=== PATIENT | female | born 2000 | race African-American/Black ===

== ENCOUNTER 2024-08-30 15:45 | Emergency (ER) | payer MEDICAID, SELFPAY ==
--- OUTSIDE RECORDS SUMMARY | 2024-08-30 15:47 | XMS_ITS | Clinical Summary ---
Author Organization [facility] Address [address] [place] [address] Care Team Providers Care Pv Installer Tech Name Role Phone Unknown, Notinfile Primary Care Provider Unavail able Saeid Fox MD Unavailable [phone] Allergies No known active allergies Medications levonorgestrel (MIRENA) IUD Mirena 20 mcg/24 hr (5 years) intrauterine device Take 1 device as needed by intrauterine route as directed. Active albuterol HFA (PROVENTIL HFA,VENTOLIN HFA,PROAIR HFA) 90 mcg/actuation inhalerIndicati ons:Asthma Inhale 2 puffs every 4 (four) hours as needed for wheezing 1 each 3 Active ibuprofen (ADVIL,MOTRIN) 600 mg tablet Take 1 tablet (600 mg total) by mouth every 6 (six) hours as needed for pain (pain) 12 tablet 4 Active Active Problems Problem Noted Date Diagnosed Date Retained intrauterine contraceptive device (IUD) 08/02/2023 Exudative pharyngitis 06/15/2021 Tonsillitis 06/15/2021 Immunizations Immunization Administration Dates Next Due Pfizer SARS-CoV-2 Monovalent Vaccination (12+ Yrs) PURPLE 04/19/2021 Medical History Medical History Date Comments Asthma Family History Medical History Relation Name Comments Diabetes Maternal Grandfather Ovarian cysts Other Relation Name Status Comments Maternal Grandfather Other Social History Tobacco Use Types Packs/Day Years Used Date Smoking Tobacco: Former Smokeless Tobacco: Never Alcohol Use Standard Drinks/Week Comments No 0 (1 standard drink = 0.6 oz pur e alcohol) AUDIT-C Answer Date Recorded Q1: How often do you have a drink containing alc ohol? Monthly or less 09/05/2023 Average Number of Drinks Not on file 024 Frequency of Binge Drinking Not on file 08/11 Personal Safety Answer Date Recorded Have you ever been in or are you currently in a harmful physical or emotional relationship or is someone making you feel afraid or unsafe? Denies 09/05/2023 Comments No Sex and Gender Information Value Date Recorded Sex Assigned at Not on file Legal Sex Female 3:48 PM MODEL MAKER FIREARMS Gender Identity Female 04/20/2023 9:35 AM MODEL MAKER FIREARMS Sexual Orientation Bisexual 06/04/2023 1: 04 PM MODEL MAKER FIREARMS Obstetrics History Last Filed Vital Signs Vital Sign Reading Time Taken Comments Blood Pressure 112/64 09/05/2023 3:08 PM CDT Pulse 75 09/05/2023 3:08 PM CDT Temperature 36.2 C (97.2 F) 09/05/2023 3:08 PM CDT Respiratory Rate 18 09/05/2023 3:08 PM CDT Oxygen Saturation 100% 09/05/2023 3:08 PM CDT Inhaled Oxygen Concentration - - Weight 152.7 kg (336 lb 10.3 oz) 2023 12:07 PM CDT Height 188 cm (6' 2 ) 09/05/2023 12:07 PM CDT Body Mass Index 43.22 09/05/2023 12:07 PM CDT Plan of Treatment Health Maintenance Due Date Last Done Comments Cervical Cancer Screening 1998 Depression Screening 1998 Hepatitis C Screening 1998 Regular Well Visit/Exam 18-64 2016 DTaP/Tdap/Td Vaccine (7 - Td or Tdap) 11/14/2019 11/13/2009, 07/29/2003, 07/29/2003, Additional history exists Covid-19 Vaccine ( season) 2024 06/09/2021, 05/10/2021, 04/19/2021 Influenza Vaccine (#1) 2024 5, 04/21/2011, 04/21/2011 Hepatitis B Screening Completed 08/05/1999 , 1998, 1998, Additional history exists Varicella Vaccines Completed 11/10/2009, 02/29/2000 HPV Vaccines Completed 01/27/2016, 03/13, 01/04/2013 Pneumococcal vaccine <65 Aged Out No longer eligible based on patient's age to complete this topic Insurance [employer] Address: [facility] [address] [place] [address] [employer] Address: [address] [place] [address] ANTHEM ACCESS CHOICE ANTHEM ACCESS CHOICE ANTHEM ACCESS CHOICE Care Teams Pv Installer Tech Relationship Specialty Start Date End Date Unknown, Notinfile PCP - General 3/13/24 Saeid Fox MD [address] [place] [address] Consulting Physician Obstetrics and Gynecology 09/05/23
--- OUTSIDE RECORDS SUMMARY | 2024-08-30 15:47 | XMS_ITS | Referral Summary ---
Author Organization [facility] Address [address] [place] [address] Care Team Providers Care Police Inspector Name Role Phone Unknown, Notinfile Primary Care Provider Unavail able Saeid Fox MD Unavailable Allergies No known active allergies Medications levonorgestrel [...] SARS-CoV-2 Monovalent Vaccination (12+ Yrs) PURPLE 04/19/2021 Social History Tobacco Use Types Packs/Day Years [...] on file Legal Sex Female 3:48 PM GREEN BUILDING ARCHITECT Gender Identity Female 04/20/2023 9:35 AM GREEN BUILDING ARCHITECT Sexual Orientation Bisexual 06/04/2023 1: 04 PM GREEN BUILDING ARCHITECT Last Filed Vital Signs Vital Sign Reading [...] 09/05/2023 12:07 PM CDT Plan of Treatment Not on file Insurance NA [facility] [employer] Address: [facility] [id number] [place] [address] [facility] [employer] [address] [place] [place] [id number] [employer] [facility] [employer] Address: [facility] [address] [place] [address] ANTHEM ACCESS CHOICE [address] [place] [place] [address] ANTHEM ACCESS CHOICE Member Subscriber Plan / Payer (Ef fective 2023-) Name:Anthony Rell Song Relation to Subscriber:Self Name:Rell Espitia Payer ID:[id number] (NAIC) Type:[employer] Address: [address] [place] [id number] ANTHEM ACCESS CHOICE Care Teams Police Inspector Relationship Specialty Start Date End Date Unknown, Notinfile PCP - General 08/23/23 Saeid Fox MD [address] [address] Consulting Physician Obstetrics and Gynecology 09/05/23
--- OUTSIDE RECORDS SUMMARY | 2024-08-30 15:47 | XMS_ITS | Clinical Summary ---
Author Organization [facility] Address [address] [place] [address] Phone Care Team Providers Care Search Marketing Specialist Name Role Phone Provider, None Primary Care Provider Unavailabl e Allergies No known active allergies Medications No known medications Social History Tobacco Use Types Packs/Day Years Used Date Smoking Tobacco: Never Smokeless Tobacco: Never Sexually Active Control Partners Comments Yes Comments No Sex and Gender Information Value Date Recorded Sex Assigned at Female 04/25/2024 11:37 PM HOSE INSPECTOR AND PATCHER Legal Sex Female 10:28 PM CDT Gender Identity Female 04/25/2024 11:37 PM HOSE INSPECTOR AND PATCHER Sexual Orientation Not on file Last Filed Vital Signs Vital Sign Reading Time Taken Comments Blood Pressure 149/81 04/25/2024 11:33 PM HOSE INSPECTOR AND PATCHER Pulse 80 04/26/2024 12:44 AM HOSE INSPECTOR AND PATCHER Temperature 36.1 C (97 F) 04/26/2024 12:35 AM HOSE INSPECTOR AND PATCHER Respiratory Rate 18 04/26/2024 12:4 4 AM HOSE INSPECTOR AND PATCHER Oxygen Saturation 99% 04/26/2024 12: 44 AM HOSE INSPECTOR AND PATCHER Inhaled Oxygen Concentration - - Weight 152.3 kg (335 lb 12.2 oz) 2023 11:33 PM HOSE INSPECTOR AND PATCHER Height 188 cm (6' 2 ) 04/25/2024 11:33 PM HOSE INSPECTOR AND PATCHER Body Mass Index 43.11 04/25/2024 11:33 PM HOSE INSPECTOR AND PATCHER Plan of Treatment Health Maintenance Due Date Last Done Comments Hepatitis C Virus (HCV) Screening 1998 Pap Smear 2019 Influenza Immunization (#1) 02/11/202403/13, 04/21/2011, 04/21/2011 SARS-COV-2 Immunization ( season) 2024 05/10/2021, 04/19/2021 Respiratory Syncytial Virus (RSV) Immunization (Adult) (1 - 1-dose 75+ series) 2073 Hepatitis B Immunization Completed 000, 1998, 1998, Additional history exists DTaP/Tdap/Td Immunization Discontinued 2009, 07/29/2003, 12/09/1999, Additional history exists TdaP Immunization Completed 11/13/2009 Meningococcal Immunization (ACWY) Completed 04/08/2015 Human Papillomavirus (HPV) Immunization Completed 01/27/2016, 04/08/2015, 01/04/2013 Pneumococcal Immunization Combined Aged Out No longer eligible based on patient's age to complete this topic Rotavirus Immunization Aged Out No lo nger eligible based on patient's age to complete this topic Insurance Care Teams Search Marketing Specialist Relationship Specialty Start Date End Date Provider, None [place] PCP - General 01/27/21
--- OUTSIDE RECORDS SUMMARY | 2024-08-30 15:55 | XMS_ITS | Data Portability ---
Author Organization [facility] DOU[facility] Address [address] [place] [address] Assessment Encounter Date Assessment Date Assessment LastModified by Organization Details LastModified Time 08/02/2023 08/02/2023 IUD unable to be removed in office today despite several efforts at exploring [email or web address] will arrange outpatient hysteroscopic removal [email or web address] Not available 08/02/2023 11:05:56 Plan of Treatment Reminders Order Date Submit Date Provider Last Modified By Organization Details Last Modified Time Details Appointments None record ed. Lab vagina l pathog ens panel, AUREA+pr obe, vagina l fluid 2023 024 [place] [facility], [address], [place], [address], 4 11:13:03 cytolo gy report , thin prep, smear or scrapi ng, cervic al or vagina l - brush and broom 2023 024 [facility], [address], [place], [address], 4 16:11:24 HIV 1 + 2, meanin gful use set 2023 024 [facility], [address], [place], [address], 4 11:13:06 RPR (rapid plasma reagin ), serum 2023 024 [place] [facility], [address], [place], [address], 4 11:13:05 HBsAg (hepat itis B surfac e Ag), EIA, serum 2023 024 [facility], [address], [place], [address], 4 11:13:04 Hepati tis C IgG Ab, qual, serum 2023 024 [facility], [address], [place], [address], 4 11:13:02 CT + NG + TV, DNA, urine/ swab 2020 021 [facility], [address] [place] [address], [address], [place], [address], 1 12:14:56 HIV 1+2 AB + HIV 1 p24 Ag, qualit ative immuno assay, serum 2020 021 [facility], [address] [place] [address], [facility] [address], [place], [address], 1 12:14:57 RPR (rapid plasma reagin ), serum 2020 021 [facility], [address] [place] [address], [facility] [address], [place], [address], 1 12:14:56 HBsAg (hepat itis B surfac e Ag), EIA, serum 2020 021 [facility], [address] [place] [address] David, [address], [place], [address], 1 12:14:57 hepati tis C Ab, signal -to-cu toff, serum or plasma 2020 021 [facility], [address] [facility] [address], [address], [place], [address], 1 12:14:55 hepati tis panel (A+B+C ), acute, serum 2020 021 [facility], [address] [facility] [address], [address], [place], [address], 1 12:14:56 hsv (1+2) igg Ab, serum 2020 021 [place] [facility], [address] [facility] [address], [address], [place], [address], 1 12:14:57 Referral gyneco logist referr al 2023 024 [email or web address], [address] [facility] [place], [address], 4 14:52:19 Procedures None record ed. Surgeries None record ed. Imaging US, pelvis , transa bdomin al + transv aginal 2023 024 [facility] (Radiology), [address] [place], [address], 4 09:39:14 US, pelvis , comple te 2020 [facility]21 [facility] [address] [place], [address], 1 09:26:30 Medication Orders None record ed. Patient TargetsNo targets recorded. Patient Instructions Encounter Date Encounter Id Patient Instructions Last Modified By Organization Details Last Modified Time 2023 [id number] candidiasis: [facility] Not available 2023 10:18:36 Reason for Referral Supplier Quality Specialist Referral for IU D check Referring Physician: Celsa Ortega, Steeping Press Operator, Encounter Date: 07/05/2023 Results Created Date Observation Date Name Description Value Unit Range Abnormal Flag Note LastModifiedBy Organization Detail LastModifiedTime 07/25/19 24 07/26/2023 HCV ANTIB CHAVA hep C virus Ab Non Reacti ve nonrea ctive HCV antib chava alone does not diffe renti ate betwe en previ ously resol makenzie infec tion and activ e infec tion. Equiv ocal and React dago HCV antib chava resul ts shoul d be follo wed up with an HCV RNA test to suppo rt the diagn osis of activ e HCV infec tion. Not Available [facility] ([facility]) [address] [place], [address], 07/27/2023 11:13:02 07/25/19 24 07/26/2023 NUA B VAGIN ITIS PLUS (VG+) atopobium vaginae High - 2 score abnormal Not Available [facility] ([facility]) [address] [place], [address], 07/27/2023 11:13:03 07/25/19 24 07/26/2023 NUA B VAGIN ITIS PLUS (VG+) bvab 2 High - 2 score abnormal Not Available [facility] ([facility]) [address] [place], [address], 07/27/2023 11:13:03 07/25/19 24 07/26/2023 NUSWA B VAGIN ITIS PLUS (VG+) megasphaera 1 High - 2 score abnormal Calcu late total score by lisa g the 3 indiv idual bacte rial vagin osis (BV) marke r score s toget her. Total score is inter prete d as follo ws: Total score 0-1: Indic ates the absen ce of BV. Total score 2: Indet ermin ate for BV. Addit ional clini charissa data shoul d be evalu ated to estab zen a diagn osis. Total score 3-6: Indic ates the prese nce of BV. This test was devel oped and its perfo rmanc e franklyn cteri stics deter mined by [facility]. It has not been clear ed or appro makenzie by the Food and Drug Admin istra tion. Not Available [facility] ([facility]) [address] [place], [address], 07/27/2023 11:13:03 07/25/19 24 07/26/2023 NUSWA B VAGIN ITIS PLUS (VG+) evangelina albicans, AUREA Negati ve negati ve Not Available [facility] ([facility]) [address] [place], [address], 07/27/2023 11:13:03 07/25/19 24 07/26/2023 NUSWA B VAGIN ITIS PLUS (VG+) evangelina glabrata, AUREA Negati ve negati ve Not Available [facility] ([facility]) [address] [place], [address], 07/27/2023 11:13:03 07/25/19 24 07/27/2023 NUSWA B VAGIN ITIS PLUS (VG+) trich vag by AUREA Negati ve negati ve Not Available [facility] ([facility]) [address] [place], [address], 07/27/2023 11:13:03 07/25/19 24 07/27/2023 NUSWA B VAGIN ITIS PLUS (VG+) chlamydia trachomatis, AUREA Negati ve negati ve Not Available [facility] ([facility]) [address] [place], [address], 07/27/2023 11:13:03 07/25/19 24 07/27/2023 NUA B VAGIN ITIS PLUS (VG+) neisseria gonorrhoeae, AUREA Negati ve negati ve Not Available [facility] ([facility]) [address] [place], [address], 07/27/2023 11:13:03 02/13/20 24 07/26/2023 HBSAG SCREE N HBsAg screen Negati ve negati ve Not Available [facility] ([facility]) [address] [facility], [place], [address], 07/27/2023 11:13:04 07/25/19 24 07/26/2023 RPR, RFX QN RPR/C ONFIR M TP RPR Non Reacti ve nonrea ctive Not Available [facility] ([facility]) [address] [facility], [place], [address], 07/27/2023 11:13:05 07/25/19 24 07/26/2023 HIV AB/P2 4 AG WITH REFLE X HIV Ab/P24 Ag screen Non Reacti ve nonrea ctive HIV Negat dago HIV-1 /HIV- 2 antib odies and HIV-1 p24 antig en were NOT detec fernando. There is no labor atory evide nce of HIV infec tion. Not Available [facility] ([facility]) [address] [facility], [place], [address], 07/27/2023 11:13:06 07/25/19 24 07/26/2023 IGP, APTIM A HPV, RFX 16/18 ,45 HPV aptima Negati ve negati ve This nucle ic acid ampli ficat ion test detec ts fourt een high- risk HPV types (16,1 8,31, 33,35 ,39,4 5,51, 52,56 ,58,5 9,66, 68) witho ut diffe renti ation . Not Available [facility] ([facility]) [address] [facility], [place], [address], 07/31/2023 16:11:24 07/25/19 24 07/31/2023 IGP, APTIM A HPV, RFX 16/18 ,45 diagnosis: Commen t abnormal EPITH ELIAL CELL ABNOR MALIT Y. ATYPI CHARISSA SQUAM OUS CELLS OF UNDET ERMIN ED SIGNI FICAN CE (ASC- US). Not Available [facility] ([facility]) [address] [facility], [place], [address], 07/31/2023 16:11:24 07/25/19 24 07/31/2023 IGP, APTIM A HPV, RFX 16/18 ,45 recommendati on: Jerome santos abnormal Sugge st follo w up as clini shira appro priat e. Not Available [facility] ([facility]) [address] [facility], [place], [address], 07/31/2023 16:11:24 07/25/19 24 07/31/2023 IGP, APTIM A HPV, RFX 16/18 ,45 specimen adequacy: Jerome santos Satis facto ry for evalu ation . Endoc ervic al and/o r squam ous metap lasti c cells (endo cervi charissa compo nent) are prese nt. Not Available [facility] ([facility]) [address] [facility], [place], [address], 07/31/2023 16:11:24 07/25/19 24 07/31/2023 IGP, APTIM A HPV, RFX 16/18 ,45 clinician provided ICD10: Jerome santos B37.3 1 Z01.4 19 Z11.3 Not Available [facility] ([facility]) [address] [facility], [place], [address], 07/31/2023 16:11:24 07/25/19 24 07/31/2023 IGP, APTIM A HPV, RFX 16/18 ,45 performed by: Jerome ruiz, Cytot echno logis t (ASCP ) Not Available [facility] ([facility]) [address] [place], [address], 07/31/2023 16:11:24 07/25/19 24 07/31/2023 IGP, APTIM A HPV, RFX 16/18 ,45 electronical ly signed by: Jerome grimes MD, Patho logis t Not Available [facility] ([facility]) [address] [facility], [place], [address], 07/31/2023 16:11:24 07/25/19 24 07/31/2023 IGP, APTIM A HPV, RFX 16/18 ,45 . . Not Available [facility] ([facility]) [address] [facility], [place], [address], 07/31/2023 16:11:24 07/25/19 24 07/31/2023 IGP, APTIM A HPV, RFX 16/18 ,45 pathologist provided ICD10: Jerome santos R87.6 10 Not Available [facility] ([facility]) [address] [facility], [place], [address], 07/31/2023 16:11:24 07/25/19 24 07/31/2023 IGP, APTIM A HPV, RFX 16/18 ,45 note: Jerome santos The Pap smear is a scree christi test desig juan to aid in the detec tion of lona ligna nt and malig nant condi tions of the uteri ne cervi x. It is not a diagn ostic proce dure and shoul d not be used as the sole means of detec ting cervi charissa cance r. Both false -posi tive and false -nega tive repor ts do occur . Not Available [facility] ([facility]) [address] [facility], [place], [address], 07/31/2023 16:11:24 07/25/19 24 07/31/2023 IGP, APTIM A HPV, RFX 16/18 ,45 test methodology: Jerome santos This liqui d based ThinP rep(R ) pap test was scree juan with the use of an image guide nhung taveras Not Available [facility] ([facility]) [address] [facility], [place], [address], 07/31/2023 16:11:24 07/25/19 24 07/31/2023 IGP, APTIM A HPV, RFX 16/18 ,45 HPV genotype reflex Commen t Crite leanna not met, HPV Genot ype not perfo rmed. Not Available [facility] ([facility]) [address], [place], [address], 07/31/2023 16:11:24 07/11/19 24 07/11/2023 US, pelvi s, trans abdom inal + trans vagin al No observ ation record ed. [facility] (Radiology) [address] [facility] , [place], [address], 07/13/2023 12:03:21 Result Notes None recorded. Problems Name Problem SNOMED Code Status Onset Date Resolution Date Notes Provider Name and Address Organization Details Recorded Time Obesity 944370580 Active Hakeem Guallpa MD Attn: Salazar edilson,[address] [facility], [place], [address], [facility] 6 12:03:38 Chronic dermatitis 23121085 Active Nadira Brown MA null, [place] - [place] 6 11:27:06 Pustule 477305889 Active Hakeem Guallpa MD Attn: Salazar g,[address] [facility], [place], [address], [facility] 6 12:03:38 Problem Notes None recorded. Procedures Surgical History Date Name Laterality Status Provider Name and Address Organization Details Recorded Time 4 Date of Last Pap Smear completed Ramya Rothman RN [place] 07/31/2023 16:20:57 3 IUD Removal cancelled LYNNE Rutledge Attn: Accounting,[address] [place], [address], [facility] 04/24/2023 15:31:56 6 IUD Insertion completed LYNNE Rutledge Attn: Accounting,[address] [place], [address], [facility] 05/20/2016 09:49:26 Imaging Results Imaging Date Name Status LastModified by Organization Details LastModified Time 07/11/2023 US, pelvis, transabdominal + transvaginal completed [id number] [place] [facility] (Radiology) [address] [facility] , [place], [address], 07/13/2023 12:03:21 Procedure Notes None recorded. Medical Equipment None Reported. Allergies No known drug allergies Medications Name Sig Start Date Stop Date Status Note LastModified by Organization Details LastModified Time ventolin hfa 108 (90 base) mcg/actaers 09/02 completed Not Available Not Available Not Available mononessa 0.25-35 mg-mcg tabs 09/02 completed Not Available Not Available Not Available prednisone 10 mg tabs 09/02 completed Not Available Not Available Not Available Mirena 21 mcg/24 hr (up to 8 years) 52 mg intrauterin e device Take 1 device as needed by intrauter ine route as directed. 2015 active Not Available Not Available Not Avai lable ibuprofen 800 mg tablet Take 1 tablet 3 times a day by oral route as needed. 09/02 completed Not Available Not Available Not Available fluconazole 150 mg tablet TAKE 1 TABLET BY MOUTH DIRECTED active Not Available Not Available No t Available metronidazo le 500 mg tablet TAKE 1 TABLET BY MOUTH TWICE DAILY FOR 7 DAYS active Not Available Not Available No t Available acyclovir 400 mg tablet Take 1 tablet twice a day by oral route as directed. 09/02 completed Not Available Not Available Not Available dexamethaso ne 4 mg tablet 09/02 completed Not Available Not Available Not Available mupirocin 2 % topical ointment APPLY A SMALL AMOUNT TO THE AFFECTED AREA BY TOPICAL ROUTE 3 TIMES PER DAY 09/02 completed Not Available Not Available Not Available albuterol sulfate HFA 90 mcg/actuati on aerosol inhaler INHALE 2 PUFFS BY MOUTH EVERY 4 HOURS NEEDED FOR WHEEZING active Not Available Not Available No t Available Paxlovid 300 mg (150 mg x 2)-100 mg tablets in a dose pack DIRECTED ON PACKAGE 07/25 completed Not Available Not Available Not Available Vitals Date Recorded Body height Body mass index (BMI) Body weight Systolic blood pressure Diastolic blood pressure Provider Name and Address Organization Details Last Updated DateTime 09/16/2020 182.88 cm 46.8 kg/m2 425964.0 7 g 124 mm[Hg] 78 mm[Hg] Dena Ruiz MA [facility] 1 15:20:13 Date Recorded Body height Body mass index (BMI) Body weight Systolic blood pressure Diastolic blood pressure Provider Name and Address Organization Details Last Updated DateTime 07/05/2023 182.88 cm 46.8 kg/m2 187278.9 7 g 126 mm[Hg] 80 mm[Hg] Dena Ruiz MA [facility] 4 15:06:16 Date Recorded Body height Body mass index (BMI) Body weight Heart rate Systolic blood pressure Diastolic blood pressure Provider Name and Address Organization Details Last Updated DateTime 182.88 cm 46.9 kg/m2 569834. 96 g 73 /min 119 mm[Hg] 77 mm[Hg] Dena Ruiz MA [facility] 4 09:52:35 Date Recorded Body height Body mass index (BMI) Body weight Systolic blood pressure Diastolic blood pressure Provider Name and Address Organization Details Last Updated DateTime 08/02/2023 182.88 cm 47.6 kg/m2 771918.9 2 g 122 mm[Hg] 70 mm[Hg] Ramya Rothman RN [facility] 4 10:48:31 Social History Question Answer Notes LastModified by Organizat ion Details LastModified Time Tobacco Smoking Status Former Smoker Black and milds Naheed alexis, [facility] 09/02/2020 11:52:03 What Is Your Level Of Alcohol Consumption? Occasional Information not available 09/02/2020 Animal Exposure? No Informat ion not available 01/27/2016 Do You Wear A Helmet When Biking? No Information not available 01/27/2016 Are You Or Have You Been Involved With Bullying? No Information not available 01/27/2016 What Is Your Level Of Caffeine Consumption? Occasional Information not available 01/27/2016 What Type Of Botanical Technical Officer Do You Use? None Information not available 01/27/2016 What Type Of Diet Are You Following? REGULAR Information not available 01/27/2016 Have There Been Any Changes To Your Family Or Social Situation? No Information not available 01/27/2016 Are There Any Guns Present In Your Home? No Information not available 01/27/2016 What Is Your Home Situation? Mother Information not available 01/27/2016 Do You Use Insect Repellent Routinely? No Information not available 01/27/2016 Car Seat Type Or Seat Belt? Seat Belt Information not available 01/27/2016 Parent Involvement? Both Parents Involved Information not available 01/27/2016 Riding In Car Front Seat? Yes Information not available 01/27/2016 What Was The Date Of Your Most Recent Tobacco Screening? 09/02/2020 [email or web address] Information not available 09/02/2020 What Is Your Parents' Marital Status? Unmarried Information not available 01/27/2016 Pool Exposure No Information not available 01/27/2016 Are You Sexually Active? Yes [email or web address] Information not available 09/02/2020 Do You Have Any Siblings? 1 Brother Information not available 01/27/2016 Do You Have Smoke And Carbon Monoxide Detectors In Your Home? Yes Information not available 01/27/2016 Are You Passively Exposed To Smoke? Yes Information not available 01/27/2016 Do You Use Any Illicit Or Recreational Drugs? No [email or web address] Information not available 09/02/2020 Do You Use Sunscreen Routinely? No Information not available 01/27/2016 How Many Years Have You Smoked Tobacco? 3 Information not available 09/02/2020 Year In School 12 Informatio n not available 01/27/2016 Do You Or Have You Ever Used Any Other Forms Of Tobacco Or Nicotine? No [email or web address] Information not available 09/02/2020 Sex: Female Functional Status Question Answer Note LastModified by Organization D etails LastModified Time What is your exercise level? None Information not available 01/27/2016 Mental Status None recorded. Family History Relationship Description Onset Age of this Age Resolved Age Notes LastModified by Organization Details LastModified Time Father Asthma Not available 0 01/27/2016 11:27:06 Maternal Grandmother Diabetes mellitus Not available 2015 11:27:06 Maternal Grandmother Hypertensive disorder Not available 2015 11:27:06 Maternal Grandmother Hyperlipidem ia Not available 2015 11:27:06 Medical History Condition Response Blood Diseases N Ear or Hearing Problems N Thyroid Problems N Depression N Developmental or Behavioral Disorders N Skin Problems N Premature N Anemia N Constipation N Diabetes N Anxiety Disorder N Muscle, Joint, or Bone Problems N Bedwetting N Vision or Eye Problems N Seizures/Epilepsy N Heart Problems/Murmur N Head Injury/Concussion N Cancer N Asthma Y Allergies N ADHD N Bladder or Kidney Problems N Headaches N Chicken Pox N Autism Spectrum Disorder (ASD) N Gynecological History Statement/Question Response Flow Light Date of LMP On BCP's at Conception? N Menses Monthly N Date of Last Pap Smear 2023 Duration of Flow (days) 5 Age at Menarche 10 Current Control Method None LMP Approximate Obstetrics History GPAL:G 0 P 0 0 0 0 Immunizations Vaccine Type Date Status Note Provider Nam e and Address Organization Details Recorded Time HPV9 6 completed Not Available [facility] 02:32:03 Hep B, adolescent or pediatric 9 completed Nadira [place] null, [place] [facility] 01/27/2016 09:50:45 IPV 0 completed [place] [facility] 01/27/2016 09:50:45 Hib, unspecified formulation 9 completed [place] [facility] 01/27/2016 09:50:45 MMR 4 completed [place] [facility] 01/27/2016 09:50:45 DTaP, unspecified formulation 9 completed [place] [facility] 01/27/2016 09:50:45 IPV 4 completed [place] [facility] 01/27/2016 09:50:45 DTaP, unspecified formulation 9 completed [place] [facility] 01/27/2016 09:50:45 meningococcal ACWY, unspecified formulation 0 [place]ES [place] [facility] 01/27/2016 09:50:45 DTaP, unspecified formulation 9 completed [place] [facility] 01/27/2016 09:50:45 varicella 0 [place] [facility] 01/27/2016 09:50:45 MMR 0 [place] [facility] 01/27/2016 09:50:45 Hep B, adolescent or pediatric 0 [place] [facility] 01/27/2016 09:50:45 Tdap 0 [place] [facility] 01/27/2016 09:50:45 Hib, unspecified formulation 9 completed [place] [facility] 01/27/2016 09:50:45 DTaP, unspecified formulation 0 [place] [facility] 01/27/2016 09:50:45 Hep A, ped/adol, 2 dose 3 completed [place] [facility] 01/27/2016 09:50:45 Hep B, adolescent or pediatric 9 completed [place] [facility] 01/27/2016 09:50:45 HPV, unspecified formulation 3 completed [place] [facility] 01/27/2016 09:50:45 influenza, unspecified formulation 1 completed [place] [facility] 01/27/2016 09:50:45 IPV 9 [place] [facility] 01/27/2016 09:50:45 Hib, unspecified formulation 0 [place] [facility] 01/27/2016 09:50:45 DTaP, unspecified formulation 4 completed [place] [facility] 01/27/2016 09:50:45 varicella 0 [place] [facility] 01/27/2016 09:50:45 IPV 9 completed [place] [facility] 01/27/2016 09:50:45 Hep B, adolescent or pediatric 9 completed [place] [facility] 01/27/2016 09:50:45 Hib, unspecified formulation 9 completed [place] [facility] 01/27/2016 09:50:45 Influenza, split virus, quadrivalent, PF 5 completed Not Available [facility] 06/[facility] 02:32:12 HPV9 5 completed Not [facility] 06/[facility]/2019 02:43:44 Hep A, ped/adol, 2 dose 5 completed Not Available [facility] 06/29/2019 02:43:08 Meningococcal MCV4O 5 completed Not Available [facility] 06/29/2019 02:31:36 Past Encounters Encounter ID Performer Location Encounter Start Date Encounter Closed Date Diagnosis/Indication Diagnosis SNOMED-CT Code Diagnosis ICD10 Code Diagnosis Note [id number] Bro[facility] (Peds) [address] [place] [address] 07/24/2014 14:04:51 07/28/2014 16:29:10 Obesity 769474683 Was 280+ lb, 1 yr ago. Does not eat breakfast. Stat BS now is 75, NL. (No lunch/cynthia kfast, just sugar in coffee) [id number] MD [place] Ybarra (Peds) [address] [place] [address] 04/08/2015 09:34:29 04/08/2015 13:48:16 Obesity 044578801 E66.9 Was 280+ lb, 1 yr ago. Does not eat breakfast. Stat BS now is 75, NL. (No lunch/cynthia kfast, just sugar in coffee) Chronic dermatitis 91575 007 L30.3 History of asthma 771556 007 Z87.09 Seasonal [id number] Celsa Jordan, [facility] [place] [facility] ([facility] [address]) [address] [place] [address] 12/10/2015 11:18:17 12/10/2015 11:55:28 Contraception care education 768020505 Z30.09 Venereal d isease screening 777527494 Z11.3 [id number] MD [facility] (Peds) [address] [place] [address] 01/27/2016 10:59:25 01/27/2016 12:22:45 Well child 620771812 Z00.129 Obesity 441558227 E66.9 Was 280+ lb, 1 yr ago. Does not eat breakfast. Stat BS now is 75, NL. (No lunch/cynthia kfast, just sugar in coffee) 01-27-16 referred to [facility], needs to stop soda and drink lot less milk Pustule 465430445 L08.9 [id number] Cesla Ortega [facility] [place] [facility] ([facility] [address]) [address] [place] [address] 05/12/2016 09:21:17 05/12/2016 13:12:06 Contraception care management 496248512 Z30.9 Venereal d isease screening 823025630 Z11.3 [id number] [facility] [place] [facility] ([facility] [address]) [address] [place] [address] 05/19/2016 09:15:21 05/19/2016 11:40:42 Contraception care management 852883177 Z30.9 [id number] Celsa Ortega [facility] [place] [facility] ([facility] [address]) [address] [place] [address] 05/20/2016 09:34:29 05/20/2016 11:30:46 Insertion of intrauterine contraceptive device 98713824 Z30.430 Dysmenorrhea 859687768 N 94.6 [id number] [facility] ([facility] [address]) [address] [place] [address] 05/31/2016 16:29:39 06/01/2016 09:19:54 Genital herpes simplex [id number] A60.9 [id number] [facility] ([facility] [address]) [address] [place] [address] 09/23/2016 14:32:54 09/23/2016 17:06:22 IUD check [id number] Z30.197 [id number] [facility] ([facility] [address]) [address] [place] [address] 03/23/2017 15:46:27 03/30/2017 14:08:21 Family planning surveillance [id number] Z30.09 Body mass index 30+ - obesity 371672294 Z68.35 [id number] LYNNE [facility] [address] [place] [address] 09/02/2020 11:47:37 09/03/2020 11:26:41 Venereal disease screening [id number] Z11.3 1. STD testing done per pt request 2. Educated pt on STD prevention , Condom use 3. Pt verbalized understand ing 4. Will follow up pending lab results, as needed or at next annual [id number] LYNNE [facility]ledge [address] [place] [address] 09/16/2020 15:09:01 09/17/2020 11:49:34 IUD check [id number] Z30.431 Ultrasound order given to patient to have placement checked. will follow up pending results. Pt v/u. [id number] [facility] [address] [place] [address] 07/05/2023 14:52:52 07/06/2023 14:58:51 IUD check [id number] Z30.431 Ultrasound order given to patient to have placement checked. will follow up pending results. Pt v/u. [id number] [facility] [address] [place] [address] 2023 09:35:44 07/26/2023 08:58:52 Gynecologic examination [id number] Z01.419 1. Counseled regarding prevention of STD's , condom use and prevention . 2. Counseled regarding contracept dago options, risk factors and side effects. 3. Advised avoidance of tobacco, alcohol, and drugs . 4. Counseled regarding folic acid supplement ation, calcium needs and prevention of osteoporos is . 5. BSE reviewed and recommende d. 6. Follow up in one year or sooner if needed. Candidal vulvovaginitis [id number] B37.31 Nuswab done and sent to lab. Counseled on STD prevention and condom use. Counseled on yeast and BV prevention . Will follow up pending lab results. Venereal d isease screening [id number] Z11.3 1. STD testing done per pt request 2. Educated pt on STD prevention , Condom use 3. Pt verbalized understand ing 4. Will follow up pending lab results, as needed or at next annual [id number] MD Maliha Red 14 OB [address] [facility] [address] [address] 08/02/2023 10:31:45 08/03/2023 10:20:01 Malposition of intrauterine contraceptive device [id number] T83.32XA Health Concerns Section Related Observation LastModified by Organization Detai ls LastModified Time None Recorded Concern Status LastModified by Organization Details LastModified Time None Recorded Advance Directives Directive None Recorded Payers Encounter Date Sequence Insurance Name Policy Number Policy Carroll Covered Member ID Carroll Member ID Guarantor Name 09/02/2020 1 [facility] [id number] Fely Mcnulty [id number] Fely Mcnulty 09/16/2020 1 [facility]LY [facility] [id number] Fely Mcnulty [id number] Fely Mcnulty 07/05/2023 1 [place] [id number] Pariah Duncan MeansAnthony [id number] Fely Mcnulty 2023 1 [place]) [id number] Pariah E Anthony [id number] Fely Mcnulty 08/02/2023 1 [place] [id number] Pariah E Anthony [id number] Fely Mcnulty Notes Date Note Type Note Provider Name and Address Organization Details Recorded Time 09/02/2020 text/html OB ProblemReport ed bypatient.Location:[facility] Associated Symptoms:no abdominal pain; no cramping; no bleeding; no vaginal discharge; no dysuria; no frequency; no urgency; no hematuria; no fever; no nausea; no emesis; no constipation; no diarrhea/loose stool; no edema; no visual changes; no headache; no dizziness;vaginal/vul kelly itching or irritation phone visit. denies exposure, states irritation in vaginal area that comes and goes. denies discharge, new soaps or detergents. LYNNE Rutledge Attn: [address] [place], [address], [facility] 09/02/2020 12:15:35 09/16/2020 text/html Annual GYNReport ed bypatient.History:no gynecologic complaints Menstrual cycle:Normal menses Urinary symptoms:No hematuria; No incontinence Vulva:No genital lesion Vagina:Normal vaginal discharge Breast:No breast pain; No breast lump; No nipple discharge Sexual complaints:No sexual complaints; No pain during intercourse; Normal libido Menopausal Symptoms:No menopausal symptoms; Normal vaginal lubrication Psychological symptoms:No depression; No anxiety; No PMDD Preventive measures:Encourage self breast examination; Encourage regular exercise; Encourage no tobacco use here for iud removal. does not want control at this time. no complaints. LYNNE Rutledge Attn: [address] [place], [address], [facility] 09/16/2020 15:43:29 07/05/2023 text/html Annual GYNReport ed bypatient.History:no gynecologic complaints Menstrual cycle:Normal menses Urinary symptoms:No hematuria; No incontinence Vulva:No genital lesion Vagina:Normal vaginal discharge Breast:No breast pain; No breast lump; No nipple discharge Sexual complaints:No sexual complaints; No pain during intercourse; Normal libido Menopausal Symptoms:No menopausal symptoms; Normal vaginal lubrication Psychological symptoms:No depression; No anxiety; No PMDD Preventive measures:Encourage self breast examination; Encourage regular exercise; Encourage no tobacco use here for iud removal. does not want control at this time. unable to remove iud in 2020, pt did not have ultrasound done nor go to surgeon. would like new referral. LYNNE Rutledge Attn: [address] [place], [address], [place] [facility] 07/05/2023 16:05:01 2023 text/html Annual GYNReport ed bypatient.History:no gynecologic complaints Menstrual cycle:Normal menses Urinary symptoms:No hematuria; No incontinence Vulva:No genital lesion Vagina:Normal vaginal discharge Breast:No breast pain; No breast lump; No nipple discharge Sexual complaints:No sexual complaints; No pain during intercourse; Normal libido Menopausal Symptoms:No menopausal symptoms; Normal vaginal lubrication Psychological symptoms:No depression; No anxiety; No PMDD Preventive measures:Encourage self breast examination; Encourage regular exercise; Encourage no tobacco use 23 yo fe here for annual exam- will be seeing Dr. Fox for IUD removal- hx obesity, - due for pap- mirena placed 05/20/16- pelvic ultrasound 07/11/23 showed iud placed in uterus LYNNE Rutledge Attn: [address] [place], [address], [place] [facility] 2023 10:39:02 08/02/2023 text/html IUD inserted 8 y ears ago.US confirmed it to still be there recently unable to be removed by Celsa Fox MD Attn: [address] [place], [address], [place] [facility] 08/02/2023 11:06:39 OBGyn Episode No OBEpisode recorded.
[2024-08-30 16:04] VITALS: BP 153/76; PULSE 87; RESP 16; TEMP 36.4; O2SAT 98
[2024-08-30 16:13] LABS: EDSTREPNEGPOS1 Negative (Negative)
--- NOTE | 2024-08-30 16:29 | ED.URI ---
HPI - URI/Sore Throat General Chief Complaint: Upper Respiratory Infection Stated Complaint: sore throat Time Seen by Provider: 08/30/24 16:29 Source: patient Mode of arrival: ambulatory Limitations: no limitations History of Present Illness HPI Narrative: 24-year-old female presents with complaint of sore throat for 2 days. Reports cough and drainage starting today. Taking cqbv-gli-nwrsfkf TheraFlu to treat symptoms. Sore throat worse in the morning when 1st waking up. Afebrile. No body aches or chills. All systems reviewed and negative except as noted above. Related Data Allergies Allergy/AdvReac Type Severity Reaction Status Date / Time No Known Allergies Allergy Verified 08/30/24 16:03 Review of Systems Review of Systems: CONSTITUTIONAL: Denies fever, chills, or sweats. EYES: Denies visual changes, redness, or discharge. ENT: Reports rhinorrhea, congestion, postnasal drainage, sore throat. Denies otalgia. CARDIOVASCULAR: Denies chest pain, palpitations, or edema. RESPIRATORY: Denies cough or dyspnea. GASTROINTESTINAL: Denies abdominal pain, nausea, vomiting, or diarrhea. GENITOURINARY: Denies dysuria or hematuria. SKIN: Denies rash or itching. MUSCULOSKELETAL: Denies back pain, joint pain, or myalgia. NEUROLOGIC: Denies headache, numbness, or weakness. PSYCHIATRIC: Denies anxiety or depression. All other systems reviewed are negative, except as documented in HPI. PMFSH Comments At time of signature, agree with nursing past medical, surgical, social and family history. There is no relevant family history pertinent to the presenting complaint. Exam Narrative: GENERAL: This is a well-nourished, well-developed patient, in no apparent distress. HEAD: normocephalic, atraumatic. EYES: PERRL. Sclera clear/white. Vision is grossly intact. EARS: External ears normal, auditory canals clear and without drainage, TMs normal without perforation. Hearing grossly intact. NOSE: External nose normal with clear nasal drainage THROAT: Mucous membranes moist, clear postnasal drainage, mild erythema to posterior pharynx without swelling or exudates NECK: Neck supple, non-tender without lymphadenopathy, masses or thyromegaly. CARDIOVASCULAR: Regular rate and rhythm without murmurs, gallops, or rubs. RESPIRATORY: Clear to auscultation. Breath sounds equal bilaterally. No wheezes, rales, or rhonchi. SKIN: warm, Dry, intact with no suspicious lesions or rash, good texture and turgor. NEURO: awake, alert, and oriented to person, place and time. There were no obvious focal neurologic abnormalities. EXTREMITIES: No joint tenderness, effusion, or edema noted. Course Course Level of Care: Express Care Visit Vital Signs Vital signs: Vital Signs Temperature 36.4 C 08/30/24 16:04 Pulse Rate 87 08/30/24 16:04 Respiratory Rate 16 08/30/24 16:04 Blood Pressure 153/76 H 08/30/24 16:04 Pulse Oximetry 98 08/30/24 16:04 Temperature 36.4 C 08/30/24 16:04 Pulse Rate 87 08/30/24 16:04 Respiratory Rate 16 08/30/24 16:04 Blood Pressure 153/76 H 08/30/24 16:04 Pulse Oximetry 98 08/30/24 16:04 reviewed MDM - URI/Sore Throat MDM Narrative Medical decision making narrative: negative strep. Strep culture ordered. Patient is well-appearing, nontoxic. Recommend byjp-fru-qljxznz medications to treat viral symptoms. Please be advised this is a medical document. It is intended for vcjj-oq-kxrx communication. It is written in medical language and may contain unfamiliar abbreviations or verbiage. Medical documents are intended to carry relevant information, facts as evident, and the clinical opinion of the practitioner at the time of the encounter. This report may have been done utilizing a voice recognition system. Attempts have been made to correct errors. However, there may be uncorrected grammatical, spelling, and recognition errors present. The file time of this note does not necessarily represent the time of service. Lab Data Labs: Lab Results 08/30/24 Range/Units 16:11 POC Grp A Strep Screen Negative (Negative) Discharge Plan Discharge Clinical Impression: Acute viral sinusitis Patient Disposition: Home, Self-Care Condition: Stable Instructions: Sinusitis (ED) Additional Instructions: your strep test was negative today. A strep culture was ordered and will take 24-48 hours. If your strep culture is positive we will call you at that time and prescribed an antibiotic. Continue taking lcip-ibd-itvflef medications to treat her symptoms such as DayQuil NyQuil cold and Sinus. Take ibuprofen every 6-8 hours as needed for pain. Drink at least 64 oz water a day. See your doctor if symptoms are not improving. Patient Language: Kyrgyz Follow-up/Referrals: PHYSICIAN,NO EXPERIENCE [Primary Care Provider] - Time of Disposition: 16:33
== END 2024-08-30 16:38 | disposition home or self-care (01) ==
PROVIDERS: Emergency Provider Nurse Practitioner Family
DX: J01.90 Acute sinusitis, unspecified (principal)
CPT/HCPCS: 87081; 87880; 99203; G0463